=== PATIENT | male | born 1945 | race Two or more races ===

== ENCOUNTER 2021-10-24 18:44 | Emergency (ER) | payer SELFPAY ==
[~2021-10-24] VITALS: Ht 165.1 cm; Wt 72.6 kg
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
--- NOTE | 2021-10-24 19:11 | NUR ---
Dr. Morejon on bedside for MSE.
[2021-10-24 19:35] LABS: HEMATOCRIT 41.7 % (36.7-47.1); MEAN CORPUSCULAR HEMOGLOBIN 30.1 uug (23.8-33.4); MEAN CORPUSCULAR VOLUME 89.4 fL (73.0-96.2); PLATELET COUNT (AUTO) 306 K/uL (152-348)
--- NOTE | 2021-10-24 19:38 | NUR ---
OLAYINKA arrived to speak with the patient.
[2021-10-24 19:43] LABS: CARBON DIOXIDE 31 mmol/L (21-32); CHLORIDE 104 mmol/L (98-107); CREATININE 1.5 mg/dL (0.6-1.3); GLUCOSE 101 mg/dL (74-106); UREA NITROGEN, BLOOD 29 mg/dL (7-18)
[2021-10-24 19:48] LABS: ALANINE AMINOTRANSFERASE 25 U/L (16-63); ALKALINE PHOSPHATASE 73 U/L (50-136); ASPARTATE AMINOTRANSFERASE 26 U/L (15-37); BILIRUBIN,DIRECT 0.3 mg/dL (0.0-0.2); BILIRUBIN,TOTAL 1.2 mg/dL (0.2-1.0); ETHANOL < 3 MG/DL (0-0); TOTAL PROTEIN, SERUM 7.3 g/dL (6.4-8.2)
[2021-10-24 19:49] LABS: ACETAMINOPHEN < 2.0 ug/mL (10-30)
[2021-10-24] MEDS ORDERED: METOCLOPRAMIDE HCL 10 MG/2 ML VIAL IM ONE (20:15)
[2021-10-24] MEDS ORDERED: ONDANSETRON ODT 4 MG TAB.RAPDIS SL ONE (20:15)
[2021-10-24] MEDS ORDERED: ONDANSETRON ODT 4 MG TAB.RAPDIS ONE (20:16)
[2021-10-24] MEDS ORDERED: METOCLOPRAMIDE HCL 10 MG/2 ML VIAL ONE (20:24)
[2021-10-24] MEDS ORDERED: POTA-194 PO (20:26)
[2021-10-24] MEDS ORDERED: FURO-152 PO (20:26)
[2021-10-24] MEDS ORDERED: SULF1TAB48 PO (20:27)
[2021-10-24] MEDS ORDERED: FUROSEMIDE 20 MG TABLET PO ONE (20:30)
[2021-10-24] MEDS ORDERED: POTASSIUM CHLORIDE 20 MEQ TAB.PRT.SR PO ONE (20:30)
[2021-10-24] MEDS ORDERED: FUROSEMIDE 20 MG TABLET ONE (20:36)
[2021-10-24] MEDS ORDERED: POTASSIUM CHLORIDE 20 MEQ TAB.PRT.SR ONE (20:36)
[2021-10-24] MEDS ORDERED: SULFAMETH/TRIMETH 800/160 MG TABLET PO ONE (20:45)
--- NOTE | 2021-10-24 21:30 | NUR ---
[facility] did not take the patient. Family was called and pt daughter picked up patient via private care. All belongings with patient. Patient discharged to home in stable condition. Written and verbal after care instructions given. Patient daughter verbalizes understanding of instructions. Stressed follow up or return to ER for worsening s/s.
[2021-10-24 21:58] VITALS: BP 108/66
[2021-10-24 22:46] LABS: THYROID STIMULATING HORMONE 2.416 mIU/mL (0.358-3.740)
== END 2021-10-24 21:30 | disposition home or self-care (01) ==
LOC: ER 18:47
DX: Z04.1 Encounter for examination and observation following transport accident (principal); R60.0 Localized edema; L03.116 Cellulitis of left lower limb; Z87.448 Personal history of other diseases of urinary system; Z79.899 Other long term (current) drug therapy
CPT/HCPCS: 36415; 80048; 80076; 80299; 80320; 84443; 85025; 96372; 99283; J2765; A4663; G0480; Q0162